=== PATIENT | male | born 1985 | race Caucasian/White ===

== ENCOUNTER 2024-01-28 06:43 | Outpatient (REF) | payer OTHER, SELFPAY ==
--- NOTE | ~2024-01-28 | US_ITS ---
EXAMINATION: US SCROTUM CLINICAL INFORMATION: Orchitis. COMPARISON: None available. TECHNIQUE: A sonogram of the scrotum was performed assessing pyle-scale appearance and color Doppler flow. Spectral Doppler analysis of the arterial and venous flow were performed in the testes bilaterally. FINDINGS: RIGHT: Right testicle measures 5.3 x 2.4 x 4.2 cm, volume 26.7 mL. Punctate calcification along the upper aspect of the right testicle. Spectral Doppler analysis of the arterial and venous flow is normal in the right testis. Right epididymal head is normal in size. No right hydrocele or varicocele is seen. LEFT: Left testicle measures 5.1 x 2.4 x 4.1 cm, volume 26.2 mL. No focal testicular parenchymal lesions are visualized. Spectral Doppler analysis of the arterial and venous flow is normal in the left testis. Left epididymal head is normal in size. No left varicocele. Complex left fluid collection, possibly representing a spermatocele. US/US scrotum IMPRESSION: 1. Complex left fluid collection, possibly representing a spermatocele. 2. Punctate calcification along the upper aspect of the right testicle. This study was presented today January 29, 2024 for interpretation. Stat results provided at this time as requested by referring provider. Electronically signed by: Ashwini Zavala MD 01/29/2024 08:22 AM [facility]
== END 2024-01-28 06:44 | disposition home or self-care (01) ==
LOC: HO.UMASIMG 06:43
PROVIDERS: Visit Provider Emergency Medicine
DX: N45.2 Orchitis (principal)
CPT/HCPCS: 76870